=== PATIENT | female | born 1970 | race Two or more races ===

== ENCOUNTER → 2024-09-16 10:09 | Outpatient (REF) | payer BC, SELFPAY | LOC: WDC 10:09 | PROVIDERS: ATTENDING PHYSICIAN Obstetrics & Gynecology Gynecology | DX: N64.4 Mastodynia (principal) | CPT/HCPCS: 76642; 77062; 77066 ==

== ENCOUNTER 2025-03-31 06:18 | Day surgery (SDC) | payer BC, SELFPAY | END 2025-03-31 08:58 | disposition home or self-care (01) | LOC: GI 06:18 | PROVIDERS: ATTENDING PHYSICIAN Internal Medicine Gastroenterology | DX: Z12.11 Encounter for screening for malignant neoplasm of colon (principal); K64.9 Unspecified hemorrhoids; K62.89 Other specified diseases of anus and rectum; D12.2 Benign neoplasm of ascending colon | CPT/HCPCS: 45385; 88305 ==

== ENCOUNTER → 2025-05-18 20:10 | Outpatient (REF) | payer BC, SELFPAY | LOC: PAVMRI 20:10 | PROVIDERS: ATTENDING PHYSICIAN Dentist Oral and Maxillofacial Surgery | DX: M26.631 Articular disc disorder of right temporomandibular joint (principal) | CPT/HCPCS: 70336 ==